=== PATIENT | male | born 1945 | race Caucasian/White ===

== ENCOUNTER 2024-04-19 13:00 | Emergency (ER) | payer OTHER, MEDICAID ==
[~2024-04-19] VITALS: Ht 175.3 cm; Wt 89.4 kg
[~2024-04-19 13:00] MED LIST: POLY17PO4 PO
[2024-04-19 13:05] VITALS: BP_SYST 138; PULSE 102; RESP 18; TEMP 99.9; O2SAT 96
[2024-04-19 13:38] LABS: BASOPHILS % (AUTO) 0.3 % (0.0-2.0); LYMPHOCYTES # (AUTO) 0.8 K/uL (1.0-5.5); LYMPHOCYTES % (AUTO) 7.6 % (20.5-51.5); MEAN CORPUSCULAR HEMOGLOBIN 30 pg (27-31); MEAN CORPUSCULAR HGB CONC 35 % (32-36); MEAN CORPUSCULAR VOLUME 85 fL (79.0-98.0); MONOCYTES % (AUTO) 10.4 % (1.7-9.3); NEUTROPHILS # (AUTO) 8.1 K/uL (1.8-7.7); NEUTROPHILS % (AUTO) 81.7 % (40.0-70.0); PLATELET COUNT (AUTO) 249 K/uL (130-430); RED BLOOD CELL COUNT(AUTO) 5.08 MIL/uL (4.2-6.2); RED CELL DISTRIBUTION WIDTH 13.6 % (9.0-15.0)
[2024-04-19 13:44] LABS: BILIRUBIN,URINE NEGATIVE (NEGATIVE); BLOOD, URINE 2+ (NEGATIVE); CLARITY/URINE CLEAR (CLEAR); COLOR,URINE YELLOW (YELLOW); GLUCOSE,URINE NEGATIVE (NEGATIVE); KETONES,URINE NEGATIVE (NEGATIVE); LEUKOCYTE ESTERASE ,URINE NEGATIVE (NEGATIVE); NITRITE, URINE NEGATIVE (NEGATIVE); PROTEIN URINE 1+ (NEGATIVE); UROBILINOGEN,URINE 0.2 (0.2-1.0)
[2024-04-19 13:56] LABS: BACTERIA,URINE RARE /HPF (None Seen); WBC,URINE 0-3 /HPF (0-3)
[2024-04-19 14:07] LABS: ALANINE AMINOTRANSFERASE 25 U/L (12-78); ALBUMIN 4.1 g/dL (3.4-4.8); ANION GAP 13 (5-15); ASPARTATE AMINOTRANSFERASE 24 U/L (10-37); BILIRUBIN,DIRECT 0.2 mg/dL (0.0-0.3); CALCIUM 9.4 mg/dL (8.4-11.0); CARBON DIOXIDE 22 mmol/L (23-29); CHLORIDE 98 mmol/L (98-107); CREATININE 1.46 mg/dL (0.55-1.30); GLUCOSE 130 mg/dL (74-106); LIPASE 28 U/L (16-77); POTASSIUM 3.3 mmol/L (3.5-5.1); SODIUM SERUM 133 mmol/L (136-145); TOTAL BILIRUBIN 0.8 mg/dL (0.0-1.0); TOTAL PROTEIN, SERUM 8.1 g/dL (6.4-8.3); UREA NITROGEN, BLOOD 17 mg/dL (8-21)
[2024-04-19 14:28] LABS: INR 1.1 (0.80-1.20); PROTHROMBIN TIME 11.8 SECS (9.5-12.5)
[2024-04-19 14:31] LABS: AMYLASE 47 U/L (0-100); LACTATE DEHYDROGENASE 256 U/L (85-227)
[2024-04-19] MEDS: MORPHINE 2 MG/ML INJ. SYRINGE IM ONE (14:47)
[2024-04-19] MEDS: ONDANSETRON 4 MG ODT TAB PO ONE (14:47)
[2024-04-19] MEDS ORDERED: OMEP20CA15 PO (15:06)
[2024-04-19] MEDS ORDERED: ONDA-8 TL (15:07)
[2024-04-19] MEDS ORDERED: HYDR-3927 PO (15:10)
[2024-04-19 15:22] VITALS: BP_SYST 138; PULSE 102; RESP 18; TEMP 99.9; O2SAT 96
== END 2024-04-19 15:23 | disposition home or self-care (01) ==
LOC: SED 13:00
DX: G89.29 Other chronic pain (principal); M54.9 Dorsalgia, unspecified; R10.13 Epigastric pain; I10 Essential (primary) hypertension; Z79.899 Other long term (current) drug therapy
CPT/HCPCS: 99285; 74176; 80076; 80048; 81001; 82150; 83615; 83690; 85025; 85610; 85730; 84484; 36415; 96372; 83605; Q0162; J2270; 81000; 81015